=== PATIENT | male | born 1970 | race Caucasian/White ===

== ENCOUNTER 2018-08-05 11:08 | Emergency (ER) | payer OTHER ==
[~2018-08-05] VITALS: Ht 188 cm; Wt 93.6 kg
[~2018-08-05 11:08] MED LIST: OMEP10CA4 PO
[2018-08-05 11:35] VITALS: BP 128/91
[2018-08-05 11:51] LABS: BASOPHILS # (AUTO) 0.03 x10^3/uL (0-0.1); BASOPHILS % (AUTO) 1 % (0-1); EOSINOPHILS # (AUTO) 0.22 x10^3/uL (0-0.4); EOSINOPHILS % (AUTO) 4 % (1-7); LYMPHOCYTES # (AUTO) 1.38 x10^3/uL (1-3.4); LYMPHOCYTES % (AUTO) 25 % (22-44); MD NO; MEAN CORPUSCULAR HEMOGLOBIN 31.4 pg (27.5-34.5); MEAN CORPUSCULAR HGB CONC 34.3 g/dL (33.2-36.2); MEAN CORPUSCULAR VOLUME 91.4 fL (81-97); MEAN PLATELET VOLUME 9.3 fL (7.4-10.4); MONOCYTES # (AUTO) 0.41 x10^3/uL (0.2-0.8); MONOCYTES % (AUTO) 7 % (2-9); NEUTROPHILS # (AUTO) 3.58 x10^3/uL (1.8-6.8); NEUTROPHILS % (AUTO) 64 % (42-75); PLATELET COUNT 201 x10^3/uL (130-400); RED BLOOD COUNT 4.69 x10^6/uL (4.38-5.82); RED CELL DISTRIBUTION WIDTH 13.1 % (9.4-14.8)
[2018-08-05 11:59] LABS: ALBUMIN 4.2 g/dL (3.4-5.0); ANION GAP 6 mmol/L (5-15); CALCIUM 9.3 mg/dL (8.5-10.1); CHLORIDE 105 mmol/L (98-107); CREATININE 1.07 mg/dL (0.7-1.3)
[2018-08-05 12:40] LABS: TROPONIN I < 0.015 ng/mL (0.000-0.045)
== END 2018-08-05 12:59 | disposition home or self-care (01) ==
LOC: ED 12:53
DX: R07.89 Other chest pain (principal); E78.5 Hyperlipidemia, unspecified
CPT/HCPCS: 36415; 71046; 80048; 82040; 84484; 85025; 85379; 93005; 99285

== ENCOUNTER 2019-11-03 13:19 | Emergency (ER) | payer OTHER ==
[~2019-11-03] VITALS: Ht 188 cm; Wt 95.0 kg
[~2019-11-03 13:19] MED LIST changes: -OMEP10CA4 PO; +OMEP10CA5 PO
[2019-11-03 13:20] VITALS: BP 119/83
--- NOTE | 2019-11-03 13:50 | NUR ---
RING REMOVED BY EMT. XRAY AT BEDSIDE
--- NOTE | 2019-11-03 13:54 | NUR ---
ICE PACK APPLIED CMS INTACT
--- NOTE | 2019-11-03 14:25 | NUR ---
EMT AT BEDSIDE SPLINT APPLIED, CARE OF & F/U INSTRUCTIONS PROVIDED
== END 2019-11-03 14:27 | disposition home or self-care (01) ==
LOC: ED 14:05
DX: S60.212A Contusion of left wrist, initial encounter (principal); K21.9 Gastro-esophageal reflux disease without esophagitis; E78.5 Hyperlipidemia, unspecified; W18.30XA Fall on same level, unspecified, initial encounter; Y93.89 Activity, other specified; Y92.009 Unspecified place in unspecified non-institutional (private) residence as the place of occurrence of the external cause; Y99.8 Other external cause status
CPT/HCPCS: 29125; 99283